=== PATIENT | female | born 1960 | race African-American/Black ===

== ENCOUNTER 2018-07-20 23:24 | Emergency (ER) | payer OTHER ==
[~2018-07-20] VITALS: Ht 167.6 cm; Wt 73.5 kg
[~2018-07-20 23:24] MED LIST: ACETAMINOPHEN325 M1 PO; COLACE100 MG PO; IBUPROFEN 600600 M1; IRON325 PO; SIMETHICON CHEW80 M1 PO
[2018-07-20] MEDS ORDERED: AMOXICILLIN 50500 MG PO (23:52)
[2018-07-20] MEDS ORDERED: TESSALON PERLE100 MG PO (23:52)
[2018-07-20] MEDS ORDERED: VENTOLIN HFA 1818 GM INH (23:52)
[2018-07-20] MEDS ORDERED: FLONASE 0.05%50 MCG NASAL (23:52)
[2018-07-21 00:22] VITALS: BP 132/65
== END 2018-07-21 00:23 | disposition home or self-care (01) ==
LOC: ER 23:24
DX: H66.92 Otitis media, unspecified, left ear (principal); J30.9 Allergic rhinitis, unspecified; Z86.2 Personal history of diseases of the blood and blood-forming organs and certain disorders involving the immune mechanism

== ENCOUNTER 2020-07-06 17:36 | Emergency (ER) | payer OTHER ==
[~2020-07-06] VITALS: Ht 167.6 cm; Wt 72.6 kg
[~2020-07-06 17:36] MED LIST changes: +AMOXICILLIN 50500 MG PO; +FLONASE 0.05%50 MCG NASAL; +TESSALON PERLE100 MG PO; +VENTOLIN HFA 1818 GM INH
[2020-07-06 18:44] LABS: ABSOLUTE NEUTROPHILS 4.5 thou/uL (1.4-8.2); BASOPHILS 0.8 % (0.0-2.0); EOSINOPHILS 0.7 % (0.0-3.0); HEMATOCRIT 35.8 % (37.0-47.0); HEMOGLOBIN 11.6 gm/dL (12.0-15.0); LYMPHOCYTES 27.2 % (24.0-44.0); MCH 25.4 pg (26.0-34.0); MCHC 32.4 g/dL (28.0-37.0); MCV 78.6 fL (80.0-100.0); MONOCYTES 6.8 % (1.0-8.0); PLATELET COUNT 250 thou/uL (150-400); POLYS 64.5 % (36.0-66.0); RBC 4.56 mil/uL (4.20-5.00); RDW 13.9 % (10.5-14.5)
[2020-07-06 18:51] LABS: CALCIUM 9.1 mg/dL (8.5-10.1); CREATININE 0.9 mg/dL (0.6-1.0); POTASSIUM 3.4 mmol/L (3.5-5.1)
[2020-07-06 19:20] VITALS: BP 127/80
== END 2020-07-06 19:20 | disposition home or self-care (01) ==
LOC: ER 17:36
PROVIDERS: Emergency Medicine
DX: M62.838 Other muscle spasm (principal); Z79.899 Other long term (current) drug therapy